=== PATIENT | female | born 1995 | race Asian ===

== ENCOUNTER 2022-09-16 16:32 | Emergency (ER) | payer OTHER ==
[~2022-09-16] VITALS: Ht 152.4 cm; Wt 46.8 kg
[2022-09-16 16:34] VITALS: BP 120/69; PULSE 110; RESP 16; TEMP 98.5
[2022-09-16] MEDS ORDERED: migraine med PO (16:37)
[2022-09-16] MEDS ORDERED: PredniSONE 20 MG TABLET PO ONE (17:30)
[2022-09-16] MEDS ORDERED: FAMOTIDINE 20 MG TABLET PO ONE (17:30)
[2022-09-16] MEDS ORDERED: DiphenhydrAMINE HCL 25 MG CAPSULE PO ONE (17:30)
[2022-09-16] MEDS ORDERED: DIPH50CA37 PO (18:26)
[2022-09-16] MEDS ORDERED: FAMO20 PO (18:26)
[2022-09-16] MEDS ORDERED: PRED-554 PO (18:26)
== END 2022-09-16 19:27 | disposition home or self-care (01) ==
LOC: EMS 16:34
DX: L50.0 Allergic urticaria (principal); G43.909 Migraine, unspecified, not intractable, without status migrainosus
CPT/HCPCS: 99284; J7512